=== PATIENT | male | born 1965 | race American Indian/Alaskan Native ===

== ENCOUNTER 2016-04-08 06:38 | Day surgery (SDC) | payer OTHER ==
--- NOTE | 2016-04-07 17:47 | PCM.PREANE ---
Preanesthetic Assessment - ANESTHESIA/TRANSFUSION/FAMILY HX Anesthesia/Transfusion History: Prior Anesthesia Family History of Anesthesia Reaction: No - REVIEW OF SYSTEMS Constitutional: Reports: no symptoms [employer] SUPERINTENDENT: Reports: no symptoms Respiratory: Reports: no symptoms Cardiovascular: Reports: no symptoms GI: Reports: no symptoms Other: Reports: none - PHYSICAL ASSESSMENT HR: 92 O2 Sat by Pulse Oximetry: 95 RR: 12 BP: 147/85 Height: 5 ft 9 in Weight: 111.584 kg ASA Class: 2 Mental Status: alert & oriented x3 Airway Class: Mallampati = 2 Dentition: Reports: normal dentition Thyro-Mental Finger Breadths: 3 Mouth Opening Finger Breadths: 3 - ALLERGIES Allergies/Adverse Reactions: Allergies Allergy/AdvReac Type Severity Reaction Status Date / Time No Known Allergies Allergy Verified 04/05/16 09:25 - ANESTHESIA PLAN Anesthesia Type Planned: general anesthesia - ACKNOWLEDGEMENTS Pt an appropriate candidate for the planned anesthesia: Yes Alternatives and risks of anesthesia discussed w pt/guardian: Yes Pt/Guardian understands and agree with anesthesia plan: Yes PreAnesthesia Questionnaire HEENT History: Reports: Allergic rhinitis, Other (see below) Other HEENT History: wears glasses Cardiovascular History: Reports: None Respiratory History: Reports: None Gastrointestinal History: Reports: Other (see below) Other Gastrointestinal History: epigastric pain Genitourinary History: Reports: None Musculoskeletal History: Reports: None Neurological History: Reports: None Psychiatric History: Reports: None Endocrine/Metabolic History: Reports: Obesity/BMI 30+ Hematologic History: Reports: None Immunologic History: Reports: None Oncologic (Cancer) History: Reports: None Dermatologic History: Reports: None - Infectious Disease History Infectious Disease History: Reports: None - Past Surgical History Head Surgeries/Procedures: Reports: None GI Surgical History: Reports: Appendectomy - SUBSTANCE USE Smoking Status *Q: Never Smoker Recreational Drug Use History: No - HOME MEDS Home Medications: Home Meds Fexofenadine [Eboni] 180 mg PO ASDIRECTED PRN 04/05/16 [History] - CURRENT (IN HOUSE) MEDS Current Meds: Current Medications Lactated Ringer's (Ringers, Lactated) 1,000 mls @ 125 mls/hr IV ASDIRECTED RON
[2016-04-08] MEDS ORDERED: Lactated Ringers 1,000 ML IV SCH ×3 (07:00→09:00)
[2016-04-08] MEDS ORDERED: Bupivacaine 0.5% 30 ML SDV ONE (07:27)
[2016-04-08] MEDS ORDERED: Lidocaine 2% 5 ML SDV ONE (07:27)
[2016-04-08] MEDS ORDERED: Propofol 200 MG/20 ML SDV ONE (07:28)
[2016-04-08] MEDS ORDERED: fentaNYL 100 MCG/2 ML SDV ONE ×2 (07:28→08:21)
[2016-04-08] MEDS ORDERED: Midazolam 1 MG/ML 2 ML SDV ONE (07:28)
[2016-04-08] MEDS ORDERED: Lidocaine 1% 50 ML MDV ONE (07:30)
[2016-04-08] MEDS ORDERED: Ondansetron 4 MG/2 ML SDV ONE (08:21)
[2016-04-08] MEDS ORDERED: Ketorolac 30 MG/ML SDV ONE (08:21)
[2016-04-08] MEDS ORDERED: fentaNYL 100 MCG/2 ML SDV IVPUSH PRN (08:28)
--- NOTE | 2016-04-08 08:49 | PCM.OPNOTE ---
- General Post-Op/Procedure Note Date of Surgery/Procedure: 04/08/16 Operative Procedure(s): Excision 5 cm suprapubic mass Pre Op Diagnosis: 5 cmbowel suprapubic mass Post-Op Diagnosis: Same Anesthesia Technique: General LMA (ASA II) Primary Surgeon: Luigi Mcclelland Dragline Engineer: Fadia Arellano Fluid Replacement, Intraop: 700 EBL in mLs: 5 Condition: Good Free Text/Narrative:: Dictation [id number]
[2016-04-08] MEDS ORDERED: Acetaminophen/HYDROcodone 325-5 MG Tab PO PRN ×2 (08:50→08:52)
[2016-04-08] MEDS ORDERED: Morphine 10 MG/ML Syringe IVPUSH PRN ×2 (08:50→08:52)
--- NOTE | 2016-04-08 12:57 | PCM.POSTAN ---
POST ANESTHESIA ASSESSMENT - MENTAL STATUS Mental Status: alert, oriented - RESPIRATORY Respiratory Status: respiratory rate WNL, airway patent, O2 saturation stable - CARDIOVASCULAR CV Status: pulse rate WNL, blood pressure stable - GASTROINTESTINAL GI Status: no symptoms - POST OP HYDRATION Hydration Status: adequate & stable
[2016-04-08 14:09] VITALS: BP 110/68
--- NOTE | 2016-04-08 19:52 | PCM48HPAN ---
Post Anesthesia Note - EVALUATION WITHIN 48HRS OF ANESTHETIC Vital Signs in Normal Range: Yes Patient Participated in Evaluation: Yes Respiratory Function Stable: Yes Airway Patent: Yes Cardiovascular Function Stable: Yes Hydration Status Stable: Yes Pain Control Satisfactory: Yes Nausea and Vomiting Control Satisfactory: Yes Mental Status Recovered: Yes
--- NOTE | 2016-04-11 07:42 | OR ---
SURGEON: Luigi Mcclelland M.D. DATE OF PROCEDURE: 04/08/2016 OPERATION PERFORMED: Excision of 5 cm suprapubic mass. FRENCH PASTRY COOK: Dr. Arellano. ANESTHESIA: General LMA. ASA CLASSIFICATION: II. PREOPERATIVE DIAGNOSIS: Enlarging suprapubic mass. POSTOPERATIVE DIAGNOSIS: Enlarging suprapubic mass. ESTIMATED BLOOD LOSS: 5 mL. INTRAOPERATIVE FLUID REPLACEMENT: 600 mL of crystalloid. DESCRIPTION OF PROCEDURE: The patient was taken to the operating room and placed on the operating table in the supine position. Time-out was called for appropriate identification of the patient and procedure. Surgical site had been marked prior to the patient entering the operating room. Thigh-high TEDS and sequential compression boots were placed. Following satisfactory attainment of general endotracheal anesthesia, the abdomen and surgical site were prepped with DuraPrep solution. Sterile drapes were applied. The skin overlying the mass was infiltrated with 0.5% Marcaine solution. The skin incision was made directly over the mass and deepened down to it. Using a combination of sharp dissection electrocautery and blunt dissection, the subcutaneous mass was removed. Clinically, this has the appearance of a lipoma. Hemostasis was obtained with the use of electrocautery. The wound was irrigated with sterile saline solution. The wound was closed in 2 layers approximating the subcutaneous tissue with running 3-0 Polysorb and the skin with subcuticular 4-0 Monocryl. The wound was then Steri-Stripped and dressed with a sterile Tegaderm pad. Sponge, needle, and instrument counts were all correct. The patient tolerated the procedure well. Following emergence from anesthesia and extubation, the patient was taken to recovery room in stable condition. PADMINI / DEREK /[id number]
== END 2016-04-08 10:50 | disposition home or self-care (01) ==
LOC: MW.SDS 06:38
PROVIDERS: ATTEND Surgery
PROC: 0WBF0ZZ Excision of Abdominal Wall, Open Approach (ICD-10-PCS; principal; 2016-04-08)
DX: D17.1 Benign lipomatous neoplasm of skin and subcutaneous tissue of trunk (principal); E66.9 Obesity, unspecified; Z90.49 Acquired absence of other specified parts of digestive tract; Z68.36 Body mass index [BMI] 36.0-36.9, adult
CPT/HCPCS: 22903; 88304; A9270; J1885; J2250; J2270; J2405; J3010; J7120; 00400; J2704

== ENCOUNTER 2016-05-27 06:25 | Day surgery (SDC) | payer OTHER ==
[~2016-05-27 06:25] MED LIST: Lactated Ringers 1,000 ML IV SCH; cefOXitin 2 GM in Premix Bag 1 BAG IV ONE
[2016-05-27] MEDS ORDERED: Propofol 200 MG/20 ML SDV ONE (07:02)
[2016-05-27] MEDS ORDERED: Midazolam 1 MG/ML 2 ML SDV ONE (07:02)
[2016-05-27] MEDS ORDERED: Lidocaine 2% 5 ML SDV ONE (07:02)
[2016-05-27] MEDS ORDERED: fentaNYL 250 MCG/5 ML SDV ONE (07:02)
[2016-05-27] MEDS ORDERED: Neostigmine Methylsulfate 1 MG/ML 5 ML Syringe ONE (07:02)
[2016-05-27] MEDS ORDERED: Rocuronium 10 MG/ML 10 ML Syringe ONE (07:02)
[2016-05-27] MEDS ORDERED: Ondansetron 4 MG/2 ML SDV ONE (07:02)
[2016-05-27] MEDS ORDERED: Scopolamine 1.5 MG Transdermal Patch TRDERM PRN (07:17)
--- NOTE | 2016-05-27 07:17 | PCM.PREANE ---
Preanesthetic Assessment - Anesthesia/Transfusion/Family Hx Anesthesia History: Prior Anesthesia Without Reaction Family History of Anesthesia Reaction: No Transfusion History: No Prior Transfusion(s) - Review of Systems General: No Symptoms Pulmonary: No Symptoms Cardiovascular: No Symptoms Neurological: No Symptoms Other: Reports: None - Physical Assessment Height: 1.75 m Weight: 106.594 kg ASA Class: 2 Mental Status: Alert & Oriented x3 Airway Class: Mallampati = 3 Dentition: Reports: Normal Dentition Thyro-Mental Finger Breadths: 3 Mouth Opening Finger Breadths: 2 ROM/Head Extension: Full Lungs: Clear to auscultation, Normal respiratory effort Cardiovascular: Regular Rate, Regular Rhythm - Allergies Allergies/Adverse Reactions: Allergies Allergy/AdvReac Type Severity Reaction Status Date / Time No Known Allergies Allergy Verified 05/25/16 12:34 - Blood Blood Available: No - Anesthesia Plan Pre-Op Medication Ordered: None - Acknowledgements Anesthesia Type Planned: General Anesthesia Pt an Appropriate Candidate for the Planned Anesthesia: Yes Alternatives and Risks of Anesthesia Discussed w Pt/Guardian: Yes Pt/Guardian Understands and Agrees with Anesthesia Plan: Yes PreAnesthesia Questionnaire HEENT History: Reports: Allergic rhinitis, Other (see below) Other HEENT History: wears glasses Cardiovascular History: Reports: None Respiratory History: Reports: None Gastrointestinal History: Reports: Other (see below) Other Gastrointestinal History: epigastric pain, biliary dyskinesia, gallblader polyp Genitourinary History: Reports: None Musculoskeletal History: Reports: None Neurological History: Reports: None Psychiatric History: Reports: None Endocrine/Metabolic History: Reports: Obesity/BMI 30+ Hematologic History: Reports: None Immunologic History: Reports: None Oncologic (Cancer) History: Reports: None Dermatologic History: Reports: None - Infectious Disease History Infectious Disease History: Reports: None - Past Surgical History Head Surgeries/Procedures: Reports: None HEENT Surgical History: Reports: None Cardiovascular Surgical History: Reports: None Respiratory Surgical History: Reports: None GI Surgical History: Reports: Appendectomy Male Surgical History: Reports: None Endocrine Surgical History: Reports: None Neurological Surgical History: Reports: None Musculoskeletal Surgical History: Reports: Other (see below) Other Musculoskeletal Surgeries/Procedures:: excision of suprapubic mass (lipoma ) Oncologic Surgical History: Reports: None Dermatological Surgical History: Reports: None - SUBSTANCE USE Smoking Status *Q: Never Smoker Days Per Week of Alcohol Use: 1 Recreational Drug Use History: No - HOME MEDS Home Medications: Home Meds Fexofenadine [Eboni] 180 mg PO ASDIRECTED PRN 04/05/16 [History] - CURRENT (IN HOUSE) MEDS Current Meds: Current Medications Lactated Ringer's (Ringers, Lactated) 1,000 mls @ 125 mls/hr IV ASDIRECTED RON Discontinued Medications Fentanyl (Sublimaze) Confirm Administered Dose 250 mcg .ROUTE .STK-MED ONE Stop: 05/27/16 07:03 Glycopyrrolate () Confirm Administered Dose 1 mg .ROUTE .STK-MED ONE Stop: 05/27/16 07:03 Cefoxitin Sodium 2 gm/ Premix 50 mls @ 100 mls/hr IV ONETIME ONE Stop: 05/27/16 06:29 Lidocaine (Xylocaine-Mpf 2%) Confirm Administered Dose 5 ml .ROUTE .STK-MED ONE Stop: 05/27/16 07:03 Midazolam HCl (Versed 1 Mg/Ml) Confirm Administered Dose 2 mg .ROUTE .STK-MED ONE Stop: 05/27/16 07:03 Neostigmine Methylsulfate (Neostigmine) Confirm Administered Dose 5 mg .ROUTE .STK-MED ONE Stop: 05/27/16 07:03 Ondansetron HCl (Zofran) Confirm Administered Dose 4 mg .ROUTE .STK-MED ONE Stop: 05/27/16 07:03 Propofol (Diprivan 20 Ml) Confirm Administered Dose 200 mg .ROUTE .STK-MED ONE Stop: 05/27/16 07:03 Rocuronium [place] (Zemuron) Confirm Administered Dose 100 mg .ROUTE .STK-MED ONE Stop: 05/27/16 07:03
[2016-05-27] MEDS ORDERED: Bupivacaine 0.5% 10 ML SDV ONE (07:20)
[2016-05-27] MEDS ORDERED: ceFAZolin 1 GM Vial ONE (07:20)
[2016-05-27] MEDS ORDERED: cefOXitin 1 GM Vial ONE (08:02)
[2016-05-27] MEDS ORDERED: Sodium Chloride 0.9% 20 ML ONE (08:02)
[2016-05-27] MEDS ORDERED: ePHEDrine 50 MG/ML SDV ONE (08:06)
[2016-05-27] MEDS ORDERED: fentaNYL 100 MCG/2 ML SDV ONE (08:24)
[2016-05-27] MEDS ORDERED: Metoprolol Tartrate 5 MG/5 ML SDV ONE (08:26)
[2016-05-27] MEDS ORDERED: fentaNYL 100 MCG/2 ML SDV IVPUSH PRN (08:32)
[2016-05-27] MEDS ORDERED: Morphine 10 MG/ML Syringe IVPUSH PRN (09:17)
[2016-05-27] MEDS ORDERED: Ondansetron 4 MG/2 ML SDV IVPUSH PRN (09:17)
--- NOTE | 2016-05-27 09:19 | PCM.OPNOTE ---
- General Post-Op/Procedure Note Date of Surgery/Procedure: 05/27/16 Operative Procedure(s): Laparoscopic cholecystectomy (05073) Pre Op Diagnosis: Chronic right upper quadrant pain. Abnormal hepatobiliary scan. Post-Op Diagnosis: Same Anesthesia Technique: General ET tube (ASA II) Primary Surgeon: Luigi Mcclelland Fluid Replacement, Intraop: 1,500 EBL in mLs: 20 Condition: Good Free Text/Narrative:: Dictation [id number]
[2016-05-27] MEDS ORDERED: Lactated Ringers 1,000 ML IV SCH (09:30)
--- NOTE | 2016-05-27 09:37 | PCM.POSTAN ---
POST ANESTHESIA ASSESSMENT - MENTAL STATUS Mental Status: alert, oriented - RESPIRATORY Respiratory Status: respiratory rate WNL, airway patent, O2 saturation stable - CARDIOVASCULAR CV Status: pulse rate WNL, blood pressure stable - GASTROINTESTINAL GI Status: no symptoms - PAIN Pain Score: 0 - POST OP HYDRATION Hydration Status: adequate & stable
[2016-05-27] MEDS: Acetaminophen/HYDROcodone 325-5 MG Tab PO PRN ×2 (11:32→12:07)
[2016-05-27 14:46] VITALS: BP 112/73
--- NOTE | 2016-05-31 06:27 | OR ---
SURGEON: Luigi Mcclelland M.D. DATE OF PROCEDURE: 05/27/2016 OPERATION PERFORMED: Laparoscopic cholecystectomy. ANESTHESIA: General endotracheal. ASA CLASSIFICATION: II. PREOPERATIVE DIAGNOSIS: Chronic right upper quadrant pain, abnormal HIDA scan. POSTOPERATIVE DIAGNOSIS: Chronic right upper quadrant pain, abnormal HIDA scan. ESTIMATED BLOOD LOSS: 20 mL. INTRAOPERATIVE FLUID REPLACEMENT: 1500 mL of crystalloid. DESCRIPTION OF PROCEDURE: The patient was taken to the operating room and placed on the operating table in the supine position. Time-out was called for appropriate identification of the patient and procedure. Thigh-high TEDs and sequential compression boots were placed. Following satisfactory attainment of general endotracheal anesthesia, a Foster catheter was placed in the patient's urinary bladder. The abdomen was prepped with DuraPrep solution. Sterile drapes were applied. The skin, just below the umbilicus, was infiltrated with 0.5% Marcaine solution. The skin incision was made and deepened through the subcutaneous tissue. The Veress needle was introduced into the peritoneal cavity. The saline drop test was positive. Carbon dioxide pneumoperitoneum was established with the release set at 13 cm of water. Once a satisfactory pneumoperitoneum was established, 5 mm camera and port were placed. The patient was now positioned with his feet down and rolled to the left. Under camera vision, 12 mm subxiphoid, 5 mm midclavicular, and 5 mm anterior axillary ports were placed. Each incision was preemptively infiltrated with 0.5% Marcaine solution. The gallbladder was grasped, and the cholecystohepatic triangle was dissected free, identifying the cystic duct and cystic artery. Good critical view of each structure was obtained before these structures were hemo-clipped and divided with the laparoscopic Metzenbaum scissor. Each structure was handled independently. Some bile was spilled in the course of the dissection and care was taken to aspirate this. Using electrocautery, the gallbladder was dissected away from its bed. Once the gallbladder was amputated, this was placed in an Endopouch. The right upper quadrant was then inspected for hemostasis. Minimal oozing was present. No bile leak was identified. The right upper quadrant was irrigated with several 100 mL of sterile saline solution. All fluid was aspirated. Surgicel was placed into the bed of the gallbladder. The right hemidiaphragm was then irrigated with 250 mL of saline containing 20 mL of 0.5% Marcaine solution. That fluid was left in place. The Endopouch containing gallbladder was removed along with the 12 mm subxiphoid port. Under camera vision, the anterior axillary and midclavicular ports were removed and finally, the infraumbilical camera and port were removed. The wounds were inspected for hemostasis. No bleeding was noted. The subxiphoid and infraumbilical incisions were closed in 2 layers, approximating the subcutaneous tissue with 3-0 Polysorb, and the skin with subcuticular 4-0 Monocryl. The anterior axillary and midclavicular incisions were closed with subcuticular 4-0 Monocryl. All incisions were Steri-Stripped and dressed with sterile Tegaderm pads. Sponge, needle, and instrument counts were all correct. The patient tolerated the procedure well. Foster catheter was removed prior to emergence from anesthesia. Following emergence from anesthesia and extubation, the patient was taken to recovery room in stable condition. PADMINI / DEREK /[id number]
== END 2016-05-27 13:50 | disposition home or self-care (01) ==
LOC: MW.SDS 06:25
PROVIDERS: ATTEND Surgery
PROC: 0FT44ZZ Resection of Gallbladder, Percutaneous Endoscopic Approach (ICD-10-PCS; principal; 2016-05-27)
DX: K81.1 Chronic cholecystitis (principal); E66.9 Obesity, unspecified; Z68.35 Body mass index [BMI] 35.0-35.9, adult; J30.2 Other seasonal allergic rhinitis
CPT/HCPCS: 47562; A9270; J0694; J2250; J2405; J3010; J7120; 00790; 88304; J0690; J2704

== ENCOUNTER 2024-07-14 17:46 | Emergency (ER) | payer OTHER ==
[2024-07-14] MEDS: ceFAZolin 2 GM in Water For Injection, Sterile 20 ML IVPUSH ONE (18:00)
[2024-07-14] MEDS: Lidocaine 1% 5 ML VIAL INJECT ONE (18:01)
[2024-07-14 18:04] LABS: BASOPHILS ABSOLUTE AUTO 0.04 K/uL (0.00-0.20); BASOPHILS PERCENT AUTO 0.5 % (0.0-1.0); EOSINOPHILS ABSOLUTE AUTO 0.21 K/uL (0.00-0.45); EOSINOPHILS PERCENT AUTO 2.5 % (0.0-6.0); HEMOGLOBIN 16.7 g/dL (14.0-18.0); IMMATURE GRAN ABSOLUTE AUTO 0.01 K/uL (0.00-0.05); IMMATURE GRAN PERCENT AUTO 0.1 % (0.0-0.4); LYMPHOCYTES ABSOLUTE AUTO 3.01 K/uL (1.00-4.80); LYMPHOCYTES PERCENT AUTO 35.2 % (24.0-44.0); MEAN CORPUSCULAR HGB CONC 34.8 g/dL (32.0-36.0); MEAN CORPUSCULAR VOLUME 89.1 fL (83.0-99.0); MEAN PLATELET VOLUME 9.4 fL (9.4-12.4); MONOCYTES ABSOLUTE AUTO 1.15 K/uL (0.00-0.80); MONOCYTES PERCENT AUTO 13.5 % (0.0-8.0); NEUTROPHILS ABSOLUTE AUTO 4.12 K/uL (1.80-7.70); NEUTROPHILS PERCENT AUTO 48.2 % (41.0-71.0); PLATELET COUNT,PLT 290 K/uL (150-400); RED BLOOD CELL COUNT 5.39 M/uL (4.52-5.90); WHITE BLOOD CELL COUNT,WBC 8.54 K/uL (3.9-11.3)
[2024-07-14] MEDS ORDERED: Lidocaine 1% 10 ML MDV INJECT ONE (18:06)
[2024-07-14] MEDS: Diphtheria,Pertussis(Acell),Tetanus Vaccine 0.5 ML Syringe IM ONE (18:07)
[2024-07-14] MEDS: HYDROmorphone 0.5 MG/0.5 ML Syringe IVPUSH ONE ×2 (18:09→19:53)
[2024-07-14] MEDS: Acetaminophen 500 MG Tab PO ONE (18:09)
[2024-07-14] MEDS: Ondansetron 4 MG/2 ML SDV IVPUSH ONE (18:10)
[2024-07-14] MEDS: Ketorolac 30 MG/ML SDV IVPUSH ONE (18:11)
[2024-07-14 18:20] LABS: INR 0.96 (0.86-1.11)
[2024-07-14] MEDS: Lidocaine 1% 10 ML MDV INFILT ONE (18:25)
[2024-07-14] MEDS: Lidocaine 1% 10 ML MDV INJECT ONE (18:30)
[2024-07-14 20:01] VITALS: BP 112/64; PULSE 81
== END 2024-07-14 20:00 | disposition home or self-care (01) ==
LOC: MW.ED 17:46
DX: S62.512B Displaced fracture of proximal phalanx of left thumb, initial encounter for open fracture (principal); Z79.899 Other long term (current) drug therapy; Z23 Encounter for immunization; W31.2XXA Contact with powered woodworking and forming machines, initial encounter; Y93.89 Activity, other specified
CPT/HCPCS: 12002; 36415; 73120; 85025; 85610; 90471; 90715; 96374; 96375; 96376; 99283; A9270; J0690; J1885; J2003; J2405; 12042